=== PATIENT | female | born 2000 | race African-American/Black ===

== ENCOUNTER 2019-05-19 00:10 | Emergency (ER) | payer MEDICAID ==
[~2019-05-19] VITALS: Ht 175.3 cm; Wt 85.9 kg
[2019-05-19 00:28] VITALS: BP 115/75
== END 2019-05-19 02:16 | disposition left against medical advice (07) ==
LOC: ER 00:10
DX: F98.9 Unspecified behavioral and emotional disorders with onset usually occurring in childhood and adolescence (principal); Z53.21 Procedure and treatment not carried out due to patient leaving prior to being seen by health care provider

== ENCOUNTER 2019-05-19 03:36 | Emergency (ER) | payer MEDICAID ==
[~2019-05-19] VITALS: Ht 172.7 cm; Wt 92.0 kg
[2019-05-19 07:54] VITALS: BP 129/81
== END 2019-05-19 07:55 | disposition left against medical advice (07) ==
LOC: ER 03:36
DX: Z59.0 Homelessness (principal); F20.9 Schizophrenia, unspecified
CPT/HCPCS: 82962; 93005; 99284

== ENCOUNTER 2019-05-19 09:36 | Emergency (ER) | payer MEDICAID ==
[~2019-05-19] VITALS: Ht 167.6 cm; Wt 65.0 kg
[2019-05-19 09:41] VITALS: BP 123/67
== END 2019-05-19 11:15 | disposition left against medical advice (07) ==
LOC: ER 09:47
DX: F98.9 Unspecified behavioral and emotional disorders with onset usually occurring in childhood and adolescence (principal); Z53.21 Procedure and treatment not carried out due to patient leaving prior to being seen by health care provider